=== PATIENT | female | born 1950 | race Caucasian/White ===

== ENCOUNTER 2021-10-14 12:49 | Outpatient (CLI) | payer MEDICARE, BC, SELFPAY | END 2021-10-14 12:50 | disposition home or self-care (01) | LOC: WOUND 13:00 | PROVIDERS: Visit Provider Nurse Practitioner Family | DX: I73.9 Peripheral vascular disease, unspecified (principal); L97.512 Non-pressure chronic ulcer of other part of right foot with fat layer exposed; G99.0 Autonomic neuropathy in diseases classified elsewhere; M14.671 Charcot's joint, right ankle and foot | CPT/HCPCS: 11042; 99203 ==

== ENCOUNTER 2021-10-21 13:54 | Outpatient (CLI) | payer MEDICARE, BC, SELFPAY | END 2021-10-21 13:55 | disposition home or self-care (01) | LOC: WOUND 13:54 | PROVIDERS: Visit Provider Nurse Practitioner Family | DX: M14.671 Charcot's joint, right ankle and foot (principal); L97.512 Non-pressure chronic ulcer of other part of right foot with fat layer exposed; I73.9 Peripheral vascular disease, unspecified | CPT/HCPCS: 99212 ==

== ENCOUNTER 2021-11-18 13:49 | Outpatient (CLI) | payer MEDICARE, BC, SELFPAY | END 2021-11-18 13:50 | disposition home or self-care (01) | LOC: WOUND 13:49 | PROVIDERS: Visit Provider Nurse Practitioner Family | DX: M14.671 Charcot's joint, right ankle and foot (principal); L97.512 Non-pressure chronic ulcer of other part of right foot with fat layer exposed; G99.0 Autonomic neuropathy in diseases classified elsewhere | CPT/HCPCS: 97597 ==

== ENCOUNTER 2021-12-02 13:45 | Outpatient (CLI) | payer MEDICARE, BC, SELFPAY | END 2021-12-02 13:46 | disposition home or self-care (01) | LOC: WOUND 13:46 | PROVIDERS: Visit Provider Nurse Practitioner Family | DX: M14.671 Charcot's joint, right ankle and foot (principal); L97.512 Non-pressure chronic ulcer of other part of right foot with fat layer exposed; I73.9 Peripheral vascular disease, unspecified | CPT/HCPCS: 99212 ==

== ENCOUNTER 2024-09-01 12:33 | Outpatient (CLI) | payer MEDICARE, BC, SELFPAY | END 2024-09-01 12:34 | disposition home or self-care (01) | LOC: WOUND 12:34 | PROVIDERS: Visit Provider Physician Assistant | DX: T81.49XA Infection following a procedure, other surgical site, initial encounter (principal); Z86.718 Personal history of other venous thrombosis and embolism; Z98.1 Arthrodesis status | CPT/HCPCS: G0463 ==